=== PATIENT | male | born 2000 | race Caucasian/White ===

== ENCOUNTER 2019-10-20 20:16 | Emergency (ER) | payer BC ==
[2019-10-20] MEDS ORDERED: Ketorolac 60 MG/2 ML SDV IM ONE (20:48)
--- NOTE | 2019-10-20 20:58 | EDM.PDOC ---
ED HPI GENERAL MEDICAL PROBLEM - General Chief Complaint: Lower Extremity Injury/Pain Stated Complaint: FOOT INJURY Time Seen by Provider: 10/20/19 20:32 Source of Information: Reports: Patient, RN Notes Reviewed History Limitations: Reports: No Limitations - History of Present Illness INITIAL COMMENTS - FREE TEXT/NARRATIVE: Patient is a 19-year-old male who presents to the ED for evaluation of a couple injuries after fall today. Patient states that he was going quite fast down a flight of 10 stairs when he ended up slipping about longterm down and fell down the last 4 5 stairs. This was at around 3 PM today. Patient was able to get up and move around after this. He states that he has an injury to his left foot , left knee, and left hand. Patient states that he is able to move his knee and hand without much difficulty, there are only small abrasions to the skin noted. He is worried more about his left foot, he states that throughout the course of the day he is not in it been able to move the foot much at all, and is not able to bear much weight on it as well. He is having little bit of tingling in his toes, and there is quite a bit of swelling to the lateral midfoot with mild amount of bruising noted. He did take 400 mg of ibuprofen around 6:00pm. He states he did not hit his head or lose any sort of consciousness. He states he has not had an injury to this ankle or foot before. Left Foot Pain Score (Numeric/FACES): 8 - Related Data Allergies Allergy/AdvReac Type Severity Reaction Status Date / Time No Known Allergies Allergy Verified 10/20/19 20:33 Home Meds: Home Meds . [No Known Home Meds] 07/02/17 [History] Past Medical History - Past Health History Medical/Surgical History: Denies Medical/Surgical History Social & Family History - Family History Family Medical History: Noncontributory - Tobacco Use Smoking Status *Q: Never Smoker - Caffeine Use Caffeine Use: Reports: None - Recreational Drug Use Recreational Drug Use: No Review of Systems - Review of Systems Review Of Systems: Comprehensive ROS is negative, except as noted in HPI. Musculoskeletal: Reports: Foot Pain (Left lateral midfoot) Skin: Reports: Bruising, Wound (Superficial skin abrasion to the knee, and dorsum of left hand) Neurological: Reports: Tingling ED EXAM, GENERAL - Physical Exam Exam: See Below Exam Limited By: No Limitations General Appearance: Alert, WD/WN, No Apparent Distress Eye Exam: Bilateral Eye: EOMI, Normal Inspection, PERRL Ears: Normal External Exam, Normal Canal, Hearing Grossly Normal, Normal TMs Nose: Normal Inspection Throat/Mouth: Normal Inspection Head: Atraumatic, Normocephalic Neck: Normal Inspection Respiratory/Chest: No Respiratory Distress, Lungs Clear, Normal Breath Sounds, No Accessory Muscle Use, Chest Non-Tender Cardiovascular: Normal Peripheral Pulses, Regular Rate, Rhythm, No Murmur Peripheral Pulses: 3+: Radial (L), Radial (R) GI/Abdominal: Normal Bowel Sounds, Soft, Non-Tender, No Distention, No Mass Extremities: Normal Capillary Refill, Limited Range of Motion (Of left foot due to pain), Other (There is a moderate amount of swelling to the left lateral midfoot, also mild amount of bruising noted). No: Joint Swelling Neurological: Alert, Oriented, Normal Cognition, No Motor/Sensory Deficits Psychiatric: Normal Affect, Normal Mood Skin Exam: Warm, Dry, No Rash, Ecchymosis (To the left lateral inferior midfoot) , Wound/Incision (Superficial skin abrasion to the left anterior knee surface, superficial skin abrasion to the dorsum of left hand) Course - Vital Signs Last Recorded V/S: Last Vital Signs Temp 97.7 F 10/20/19 20:30 Pulse 92 10/20/19 20:30 Resp 14 10/20/19 20:30 BP 131/73 10/20/19 20:30 Pulse Ox 96 10/20/19 20:30 - Orders/Labs/Meds Orders: Active Orders 24 hr Category Date Time Status Foot Comp Min 3V Lt [CR] Stat Exams 10/20/19 20:48 Ordered PADMINI Bandage [Elastic Wrap] [OM.PC] Routine Oth 10/20/19 21:58 Ordered DME for Discharge [COMM] Routine Oth 10/20/19 21:58 Ordered Meds: Medications Discontinued Medications Generic Name Dose Route Start Last Admin Trade Name Freq PRN Reason Stop Dose Admin Ketorolac Tromethamine 60 mg 10/20/19 20:48 10/20/19 20:56 Toradol IM 10/20/19 20:49 60 mg ONETIME ONE Administration - Re-Assessments/Exams Free Text/Narrative Re-Assessment/Exam: 10/20/19 20:58 Patient presents to the ED for evaluation of his foot injury. I did order x- rays for further evaluation, and have ordered a 60 mg injection of Toradol for pain management. All other injuries are superficial and should heal appropriately. Departure - Departure Time of Disposition: 21:59 Disposition: Home, Self-Care 01 Condition: Fair Clinical Impression: Skin abrasion Injury of right foot Qualifiers: Encounter type: initial encounter Qualified Code(s): S99.921A - Unspecified injury of right foot, initial encounter - Discharge Information *PRESCRIPTION DRUG MONITORING PROGRAM REVIEWED*: No *COPY OF PRESCRIPTION DRUG MONITORING REPORT IN PATIENT SCOOTER: No Instructions: Crutch Use, Adult, [id number] Referrals: Therese Snowden [facility] ADMINISTRATOR [Primary Care Provider] - Forms: ED Department Discharge Additional Instructions: You have been evaluated in the ED for your left foot injury. Your x-ray demonstrated no acute fracture or bony abnormality. Please use ice as tolerated to the affected area. Please try to elevate the affected area to relieve swelling. Use the crutches as much as possible for ambulation, to help relieve pain on the left foot. You may take Tylenol 500 mg or ibuprofen 600mg q6 hrs for pain relief. Please do so until you have a tolerable level of pain with activity. Do not exceed 4000mg Tylenol or 3200mg ibuprofen in a 24 hour time period. Please keep the other skin abrasions clean and dry, you may cleanse with soap and water, look out for signs of infection like increased redness, swelling at the site of injuries. Please return to ED if your symptoms should change or worsen. Sepsis Event Note - Evaluation Sepsis Screening Result: No Definite Risk - Focused Exam Vital Signs: Vital Signs Temp Pulse Resp BP Pulse Ox 10/20/19 20:30 97.7 F 92 14 131/73 96 Date Exam was Performed: 10/20/19 Time Exam was Performed: 21:59 - My Orders Last 24 Hours: My Active Orders 10/20/19 20:48 Foot Comp Min 3V Lt [CR] Stat 10/20/19 21:58 PADMINI Bandage [Elastic Wrap] [OM.PC] Routine DME for Discharge [COMM] Routine - Assessment/Plan Last 24 Hours: My Active Orders 10/20/19 20:48 Foot Comp Min 3V Lt [CR] Stat 10/20/19 21:58 PADMINI Bandage [Elastic Wrap] [OM.PC] Routine DME for Discharge [COMM] Routine
--- NOTE | 2019-10-21 07:04 | CR ---
Left foot: Four views of the left foot were obtained. Comparison: No prior foot exam. Joint spaces are maintained. No fracture, dislocation or other bony abnormality is seen. Impression: 1. No abnormality is identified on left foot exam. Diagnostic code #1 This report was dictated in [place] Standard Time
== END 2019-10-20 22:26 | disposition home or self-care (01) ==
LOC: JD.ED 20:16
DX: S90.32XA Contusion of left foot, initial encounter (principal); S80.212A Abrasion, left knee, initial encounter; S60.512A Abrasion of left hand, initial encounter; W10.8XXA Fall (on) (from) other stairs and steps, initial encounter
CPT/HCPCS: 73630; 96372; 99283; J1885